=== PATIENT | female | born 1990 | race Caucasian/White ===

== ENCOUNTER 2017-05-01 14:44 | Emergency (ER) | payer OTHER | END 2017-05-01 15:21 | disposition home or self-care (01) | LOC: M ED 14:44 | DX: Z76.0 Encounter for issue of repeat prescription (principal); F33.9 Major depressive disorder, recurrent, unspecified; Z79.899 Other long term (current) drug therapy | CPT/HCPCS: 99282 ==

== ENCOUNTER 2025-04-03 13:53 | Emergency (ER) | payer OTHER, MEDICAID ==
[~2025-04-03] VITALS: Ht 152.4 cm; Wt 78.5 kg
[~2025-04-03 13:53] MED LIST: DEXT5CAP5 PO; MONT10TA97 PO; SERT25TA21 PO; SERT25TA85 PO
[2025-04-03] MEDS ORDERED: FLUO40CA (14:21)
[2025-04-03] MEDS ORDERED: PROP10TA56 (14:21)
[2025-04-03] MEDS ORDERED: PRAZ1CAP (14:21)
[2025-04-03] MEDS ORDERED: BUPR-71 (14:21)
[2025-04-03] MEDS ORDERED: LISI10TA22 (14:21)
[2025-04-03] MEDS: NS (Normal Saline) 0.9% 1,000 ML IV ONE (14:50)
[2025-04-03] MEDS: ACETAMINOPHEN *IV* 1,000 MG in IV 1 EA IV ONE (15:05)
[2025-04-03] MEDS: diphenhydrAMINE 50 MG/ML VIAL IV ONE (15:19)
[2025-04-03 16:09] VITALS: BP 127/82; TEMP 98; O2SAT 100
== END 2025-04-03 16:10 | disposition home or self-care (01) ==
LOC: M ED 13:53
DX: R51.9 Headache, unspecified (principal); I10 Essential (primary) hypertension; F12.10 Cannabis abuse, uncomplicated; Z88.1 Allergy status to other antibiotic agents; Z79.899 Other long term (current) drug therapy
CPT/HCPCS: 70450; 96365; 96375; 99284; J0134; J1200; J2765